=== PATIENT | female | born 1965 | race Caucasian/White ===

== ENCOUNTER 2019-02-28 01:28 | Inpatient (IN) | payer BC ==
[~2019-02-28] VITALS: Ht 162.6 cm; Wt 66.4 kg
[2019-02-28] VITALS (9 sets, daily range): BP systolic 94–129; BP diastolic 48–90
--- NOTE | 2019-02-28 01:30 | NUR ---
ED Nurse Note: pt was brought in by ambulance 61 from home for C/O flu like symptoms and nuchal rigidity. pt stated she just landed back to [place] during afternoon 02/27/19 from [place]. pt is aelrt x4. VSS
[2019-02-28] MEDS ORDERED: Metoclopramide 10mg/2ml Inj IVP ONE (01:45)
[2019-02-28] MEDS ORDERED: DiphenhydrAMINE 50mg/ml Inj IVP ONE (01:45)
[2019-02-28 01:52] LABS: BASOPHILS % (AUTO) 0.4 % (0.0-2.0); EOSINOPHILS % (AUTO) 0.5 % (0.0-3.0); HEMATOCRIT 43.1 % (37.0-47.0); HEMOGLOBIN 14.6 G/DL (12.0-16.0); LYMPHOCYTES % (AUTO) 22.2 % (20.0-45.0); MEAN CORPUSCULAR VOLUME 88 FL (80-99); MONOCYTES % (AUTO) 5.2 % (1.0-10.0); NEUTROPHILS % (AUTO) 71.7 % (45.0-75.0); PLATELET COUNT 339 K/UL (150-450); RED BLOOD COUNT 4.91 M/UL (4.20-5.40); RED CELL DISTRIBUTION WIDTH 11.4 % (11.6-14.8); WHITE BLOOD COUNT 11.4 K/UL (4.8-10.8)
--- NOTE | 2019-02-28 01:54 | NUR ---
ED Nurse Note: blood sample sent down to lab. pt unable to provide urine at this time. pt stated she will call nurse when she is ready to provide urine sample.
--- NOTE | 2019-02-28 01:59 | NUR ---
ED Nurse Note: CXR performed at bedside.
[2019-02-28 02:05] LABS: ANION GAP 11 mmol/L (5-15); BLOOD UREA NITROGEN 6 mg/dL (7-18); CALCIUM 9.5 MG/DL (8.5-10.1); CARBON DIOXIDE 27 MMOL/L (21-32); CHLORIDE 106 MMOL/L (98-107); POTASSIUM 3.5 MMOL/L (3.5-5.1); SODIUM 144 MMOL/L (136-145)
--- NOTE | 2019-02-28 02:12 | Emergency Room Report ---
History of Present Illness General Chief Complaint: General Complaint Source: Patient Present Illness HPI Patient 54-year-old female presents after increased Headache and generalized pain. She reports having onset one day prior to arrival. She had several episodes of vomiting. No diarrhea She denies prior similar headaches. She denies any prior medical history and does not have any prior history of hypertension. She reports recent travel from [place]. Reports having some increased headache as well as neck stiffness sudden onset. Also has low back pain. Some skin rash to chest which resolved several days ago. Allergies: Coded Allergies: No Known Allergies (Unverified , 02/28/19) Patient History Past Medical History: see triage record Reviewed Nursing Documentation: PMH: Agreed; PSxH: Agreed Nursing Documentation-PMH Past Medical History: No Stated History Review of Systems All Other Systems: negative except mentioned in HPI Physical Exam Vital Signs Date Time Temp Pulse Resp B/P (MAP) Pulse Ox O2 Delivery O2 Flow Rate FiO2 02/28/19 01:25 97.2 69 16 185/63 (103) 98 Room Air Sp02 EP Interpretation: reviewed, normal General Appearance: normal inspection, alert, GCS 15, moderate distress Head: atraumatic Eyes: bilateral eye PERRL, bilateral eye photophobia ENT: normal ENT inspection, hearing grossly normal, normal voice Neck: normal inspection, supple, no bony tend, limited range of motion Respiratory: normal inspection, lungs clear, normal breath sounds, no respiratory distress, no retraction, no wheezing Cardiovascular #1: regular rate, rhythm, no edema Gastrointestinal: normal inspection, normal bowel sounds, non tender, soft, no guarding, no hernia Musculoskeletal: normal inspection, back normal, normal range of motion Neurologic: normal inspection, alert, oriented x3, responsive, pattern drum maker III-XII nml as tested, speech normal Psychiatric: normal inspection, judgement/insight normal, mood/affect normal Skin: no rash Procedures Lumbar Puncture Consent: Written Location: L3-L4 Anesthesia: 1% Lidocaine Volume Anesthetic (ccs): 10 Prep: bedadine Needle Size: 3 1/2 CSF: clear Post-Procedure: recumbent position Attempts: Other - two attempted initially L4-5 without able to enter space Complications: none Patient Tolerated: Well Medical Decision Making Diagnostic Impression: Primary Impression: Meningitis ER Course Patient presented for headache. Differential diagnoses included but was not limited to skull fracture, subarachnoid hemorrhage, meningitis, aneurysm, mass lesion, intracranial hemorrhage. Because of complexity of patient's case laboratory tests and imaging studies were ordered. Patient was noted to have some concerning symptoms. She was noted to be afebrile. Laboratory testing showed slightly elevated WBC. CT head showed no acute intracranial pathology see radiology report for full details. Patient was given medications for pain and empiric antibiotics and acyclovir. Lumbar puncture was performed after informed consent. CSF studies showed elevated protein with normal glucose. Large number of WBC no organism on gram stain consistent with meningitis. Patient was given Decadron. Patient was awake and alert at the time of admission and was able to answer questions well. Dr. Lizandro Sparks was contacted for inpatient management due to panel physician. Labs Test 02/28/19 01:30 White Blood Count 11.4 K/UL (4.8-10.8) Red Blood Count 4.91 M/UL (4.20-5.40) Hemoglobin 14.6 G/DL (12.0-16.0) Hematocrit 43.1 % (37.0-47.0) Mean Corpuscular Volume 88 FL (80-99) Mean Corpuscular Hemoglobin 29.8 PG (27.0-31.0) Mean Corpuscular Hemoglobin Concent 34.0 G/DL (32.0-36.0) Red Cell Distribution Width 11.4 % (11.6-14.8) Platelet Count 339 K/UL (150-450) Mean Platelet Volume 6.8 FL (6.5-10.1) Neutrophils (%) (Auto) 71.7 % (45.0-75.0) Lymphocytes (%) (Auto) 22.2 % (20.0-45.0) Monocytes (%) (Auto) 5.2 % (1.0-10.0) Eosinophils (%) (Auto) 0.5 % (0.0-3.0) Basophils (%) (Auto) 0.4 % (0.0-2.0) Sodium Level 144 MMOL/L (136-145) Potassium Level 3.5 MMOL/L (3.5-5.1) Chloride Level 106 MMOL/L (98-107) Carbon Dioxide Level 27 MMOL/L (21-32) Anion Gap 11 mmol/L (5-15) Blood Urea Nitrogen 6 mg/dL (7-18) Creatinine 1.0 MG/DL (0.55-1.30) Estimat Glomerular Filtration Rate 57.4 mL/min (>60) Glucose Level 102 MG/DL (74-106) Calcium Level 9.5 MG/DL (8.5-10.1) EKG Diagnostic Results Rate: normal Rhythm: NSR ST Segments: no acute changes Last Vital Signs Date Time Temp Pulse Resp B/P (MAP) Pulse Ox O2 Delivery O2 Flow Rate FiO2 02/28/19 01:30 98.0 66 16 109/70 98 Room Air Status: unchanged Disposition: ADMITTED INPATIENT Condition: Stable Referrals: NOT CHOSEN IPA/,REFERRING (PCP) Wojciech Munoz MD Feb 28, 2019 02:12
--- NOTE | 2019-02-28 02:17 | NUR ---
ED Nurse Note: returned back from CT
[2019-02-28 02:18] LABS: ALANINE AMINOTRANSFERASE 22 U/L (12-78); ALBUMIN 3.8 G/DL (3.4-5.0); ALKALINE PHOSPHATASE 93 U/L (46-116); ASPARTATE AMINO TRANSFERASE 20 U/L (15-37); BILIRUBIN,TOTAL 1.2 MG/DL (0.2-1.0); CKMB < 0.5 NG/ML (0.0-3.6); CREATINE KINASE 44 U/L (26-308); PHOSPHORUS 2.2 MG/DL (2.5-4.9)
[2019-02-28 02:22] LABS: BILIRUBIN,DIRECT 0.3 MG/DL (0.0-0.3)
--- NOTE | 2019-02-28 02:35 | NUR ---
ED Nurse Note: urine sample was provided by pt and sent down to lab .
[2019-02-28 02:43] LABS: APPEARANCE,URINE CLEAR; BILIRUBIN, URINE NEGATIVE (NEGATIVE); COLOR,URINE PALE YELLOW; GLUCOSE, URINE (UA) NEGATIVE (NEGATIVE); KETONES,URINE 1+ (NEGATIVE); LEUKOCYTE ESTERASE ,URINE 1+ (NEGATIVE); NITRITE,URINE NEGATIVE (NEGATIVE); PH,URINE 8 (4.5-8.0); PROTEIN,URINE NEGATIVE (NEGATIVE); UROBILINOGEN,URINE NORMAL MG/DL (0.0-1.0)
[2019-02-28] MEDS: Morphine Sulfate 2mg/ml Inj(IV/IM USE ONLY) IVP ONE ×2 (02:59→03:02)
[2019-02-28] MEDS ORDERED: Ketorolac 30mg Inj IV ONE (03:15)
[2019-02-28] MEDS ORDERED: Lidocaine 1% Plain 30 ml INJ ONE ×2 (03:17→04:15)
--- NOTE | 2019-02-28 03:22 | NUR ---
ED Nurse Note: report given to RALPH joseph .
--- NOTE | 2019-02-28 03:40 | Diagnostic Imaging Report ---
Indications: Altered mental status Technique: Spiral acquisitions obtained through the brain. Angled axial and coronal 5 x 5 mm slices were reconstructed. Total dose length product 1426 mGycm. CTDI vol(s) 62 mGy. Dose reduction achieved using automated exposure control Comparison: None. Findings: No acute intracranial hemorrhage or edema. No mass effect nor midline shift. Normal quiñonez-white differentiation. Visualized orbits are unremarkable. There is minimal ethmoid and left sphenoid sinus disease. The frontal sinus versus are underpneumatized. The mastoids are clear. The calvarium is intact. Impression: Negative This agrees with the preliminary interpretation provided overnight by [facility] service. The CT scanner at [facility] is accredited by the [employer] and the scans are performed using protocols designed to limit radiation exposure to as low as reasonably achievable to attain images of sufficient resolution adequate for diagnostic evaluation.
--- NOTE | 2019-02-28 04:02 | NUR ---
ER Nurse Note: Lumbar puncture performed by ER MD; tolerated well. Pt expressed pain in bilateral hips and back with head pain. Tubes collected and sent to lab. Pt instructed to on back as long as possible. Will continue to josesito.
--- NOTE | 2019-02-28 04:41 | NUR ---
ER Nurse Note: Pt expressed pain on lower back and head; 10/10 intense pain. ERMD aware and prescribed pain meds. VSS, stable. Will continue to montior.
--- NOTE | 2019-02-28 05:15 | NUR ---
ED Nurse Note: received report from RALPH Kaur patient at no distress at this time. will continue to monitor
[2019-02-28] MEDS ORDERED: Vancomycin 1 GM in NS 275 ML IVPB ONE (05:30)
[2019-02-28] MEDS ORDERED: Acyclovir 500 MG in D5W 110 ML IVPB ONE (05:30)
[2019-02-28] MEDS ORDERED: cefTRIAXone 2 GM in NS 55 ML IVPB ONE (05:30)
[2019-02-28] MEDS ORDERED: Dexamethasone 4mg/ml vial IVP ONE (06:45)
--- NOTE | 2019-02-28 06:45 | NUR ---
ED Nurse Note: Patient resting in bed accompanied by daughter, in no distress. waiting for room assignment
--- NOTE | 2019-02-28 07:19 | NUR ---
HAND-OFF: Report given to RALPH Miranda.
--- NOTE | 2019-02-28 07:58 | NUR ---
ED Nurse Note: Report given to RALPH Hayward at ext [phone]. Pt to be tranferred to room [address] [facility] with contact and droplet precaution accompanied by RN and diploma pharmacy technician with all belongings.
--- NOTE | 2019-02-28 08:30 | NUR ---
NURSE NOTES: Received report from RALPH Miranda @ ER. The next of kin of the patient, the patient's daughter at the bedside to support the patient. The patient's belongings checked with the patient and two nurses and signed by two nurses. The patient came in with headache, weakness, and flu like symptoms and treated with pain medication, steroid, and antibiotics @ ER. The patient still has headache that radiates to neck and back area. Notified Dr. Sparks regarding the patient's pain and fever and received the order. Medical, Surgical, allergy, and social history taken by the nurse. Admitting EKG strip obtained. Medication reconciliation completed @ ER and the patient does not take any medication. The patient has R hand 20G SL that is intact and patent. Per patient she does not have POLST or advance directive. The patient's skin is intact. The patient is placed in contact and droplet precaution as she had abnormal finding on CSF fluid. The patient's vitals signs were as follows: BP 102/67, pulse 70, temperature 101.1F, SpO2 97% in room air. Will obtain admission order from Dr. Sparks and will continue plan of care.
[2019-02-28] MEDS ORDERED: Gadavist 7.5mMol/7.5ml vial IV PRN (08:45)
--- NOTE | 2019-02-28 09:30 | NUR ---
NURSE NOTES: Dr. Sparks ordered following admission orders: SCD for DVT prophylaxis, Full code status, Regular diet, Droplet and contact precaution, Oxygen therapy as ordered, MRI of brain with and without contrast. Dr. Sparks ordered antibiotics and consulted with Dr. Mejia for the patient's condition. Will continue plan of care.
[2019-02-28] MEDS: Acyclovir 750 MG in NS 110 ML IV SCH ×3 (09:40→22:07)
[2019-02-28] MEDS: Ampicillin 2 GM in NS 110 ML IVPB SCH ×4 (09:40→21:06)
--- NOTE | 2019-02-28 09:59 | NUR ---
*-* NO INSURANCE INFORMATION IN THE BAR UNABLE TO SEND CLINICALS OR REVIEWS *-*
--- NOTE | 2019-02-28 11:45 | Consultation ---
History of Present Illness General Date patient seen: Feb 28, 2019 Chief Complaint: General Complaint Present Illness HPI 54 y/o F with no prior medical history presented to ED on 02/28 with 1 day of worsening headache and generalized pain, several episodes of vomiting, neck stiffness and low back pain. Denied diarrhea. Recent travel from [place]; came back yesterday. Was there for 2 weeks visiting family. Last [place] Last week referred having intermittent hip pain and had a mild itchy rash on torso and abdomen. No sicks contacts. Had multiple mosquitoe bites in her home in [place], [place]. Allergies: Coded Allergies: No Known Allergies (Unverified , 02/28/19) Patient History Healthcare decision maker Resuscitation status Advanced Directive on File Patient History Narrative Pmhx: as above Shx: reviewed Fhx: non contributory Review of Systems All Other Systems: negative except mentioned in HPI Physical Exam Physical Exam Narrative General Appearance: normal inspection, well appearing, no apparent distress, alert Head: atraumatic ENT: normal ENT inspection, hearing grossly normal, normal voice Neck: normal inspection, full range of motion, supple, no bony tend Respiratory: normal inspection, lungs clear, normal breath sounds, no respiratory distress, no retraction, no wheezing Cardiovascular : regular rate, rhythm, no edema Gastrointestinal: normal inspection, normal bowel sounds, non tender, soft, no guarding, no hernia Genitourinary: no CVA tenderness Musculoskeletal: normal inspection, back normal, normal range of motion Neurologic: normal inspection, alert, oriented x3, responsive, cd manufacturing supervisor III-XII nml as tested, speech normal Psychiatric: normal inspection, judgement/insight normal, mood/affect normal Last 24 Hour Vital Signs Date Time Temp Pulse Resp B/P (MAP) Pulse Ox O2 Delivery O2 Flow Rate FiO2 02/28/19 08:04 81 20 103/74 100 Room Air 02/28/19 07:25 76 18 95/49 97 Room Air 02/28/19 06:46 75 16 102/90 98 Room Air 99 02/28/19 05:15 98.0 62 16 115/62 98 Room Air 99 02/28/19 04:40 98.0 68 16 129/68 98 Room Air 99 02/28/19 04:02 98.0 02/28/19 01:30 98.0 66 16 109/70 98 Room Air 02/28/19 01:28 74 19 Room Air 99 02/28/19 01:25 97.2 69 16 185/63 (103) 98 Room Air Intake and Output 02/27/19 02/28/19 19:00 07:00 Intake Total 1000 ml Balance 1000 ml Intake IV Total 1000 ml Laboratory Tests Test 02/28/19 01:30 02/28/19 02:30 02/28/19 04:00 White Blood Count 11.4 K/UL (4.8-10.8) H Red Blood Count 4.91 M/UL (4.20-5.40) Hemoglobin 14.6 G/DL (12.0-16.0) Hematocrit 43.1 % (37.0-47.0) Mean Corpuscular Volume 88 FL (80-99) Mean Corpuscular Hemoglobin 29.8 PG (27.0-31.0) Mean Corpuscular Hemoglobin Concent 34.0 G/DL (32.0-36.0) Red Cell Distribution Width 11.4 % (11.6-14.8) L Platelet Count 339 K/UL (150-450) Mean Platelet Volume 6.8 FL (6.5-10.1) Neutrophils (%) (Auto) 71.7 % (45.0-75.0) Lymphocytes (%) (Auto) 22.2 % (20.0-45.0) Monocytes (%) (Auto) 5.2 % (1.0-10.0) Eosinophils (%) (Auto) 0.5 % (0.0-3.0) Basophils (%) (Auto) 0.4 % (0.0-2.0) Erythrocyte Sedimentation Rate 22 MM/HR (0-30) Sodium Level 144 MMOL/L (136-145) Potassium Level 3.5 MMOL/L (3.5-5.1) Chloride Level 106 MMOL/L (98-107) Carbon Dioxide Level 27 MMOL/L (21-32) Anion Gap 11 mmol/L (5-15) Blood Urea Nitrogen 6 mg/dL (7-18) L Creatinine 1.0 MG/DL (0.55-1.30) Estimat Glomerular Filtration Rate 57.4 mL/min (>60) Glucose Level 102 MG/DL (74-106) Lactic Acid Level 1.40 mmol/L (0.4-2.0) Calcium Level 9.5 MG/DL (8.5-10.1) Phosphorus Level 2.2 MG/DL (2.5-4.9) L Magnesium Level 1.9 MG/DL (1.8-2.4) Total Bilirubin 1.2 MG/DL (0.2-1.0) H Direct Bilirubin 0.3 MG/DL (0.0-0.3) Aspartate Amino Transf (AST/SGOT) 20 U/L (15-37) Alanine Aminotransferase (ALT/SGPT) 22 U/L (12-78) Alkaline Phosphatase 93 U/L (46-116) Total Creatine Kinase 44 U/L (26-308) Creatine Kinase MB < 0.5 NG/ML (0.0-3.6) Creatine Kinase MB Relative Index 1.1 Troponin I 0.003 ng/mL (0.000-0.056) Total Protein 7.6 G/DL (6.4-8.2) Albumin 3.8 G/DL (3.4-5.0) Globulin 3.8 g/dL Albumin/Globulin Ratio 1.0 (1.0-2.7) West Nile Virus IgG Antibody Pending West Nile Virus IgM Antibody Pending HIV-1 RNA (PCR) log10 Value Pending HIV-1 RNA Ultraquantitative (PCR) Pending HIV (1&2) Antibody Rapid Negative (NEGATIVE) Urine Color Pale yellow Urine Appearance Clear Urine pH 8 (4.5-8.0) Urine Specific [place] 1.015 (1.005-1.035) Urine Protein Negative (NEGATIVE) Urine Glucose (UA) Negative (NEGATIVE) Urine Ketones 1+ (NEGATIVE) H Urine Blood Negative (NEGATIVE) Urine Nitrite Negative (NEGATIVE) Urine Bilirubin Negative (NEGATIVE) Urine Urobilinogen Normal MG/DL (0.0-1.0) Urine Leukocyte Esterase 1+ (NEGATIVE) H Urine RBC 0-2 /HPF (0 - 2) Urine WBC 0-2 /HPF (0 - 2) Urine Squamous Epithelial Cells Few /LPF (NONE/OCC) Urine Bacteria Few /HPF (NONE) Urine Opiates Screen Negative (NEGATIVE) Urine Barbiturates Screen Negative (NEGATIVE) Phencyclidine (PCP) Screen Negative (NEGATIVE) Urine Amphetamines Screen Negative (NEGATIVE) Urine Benzodiazepines Screen Negative (NEGATIVE) Urine Cocaine Screen Negative (NEGATIVE) Urine Marijuana (THC) Screen Positive (NEGATIVE) H CSF Appearance Hazy (Clear) CSF Color Colorless (Colorless) CSF WBC 4500 /CU MM (0-5) *H CSF RBC 800 /CU MM CSF Neutrophils % 11 % CSF Lymphocytes % 89 % CSF Monocytes % 0 % CSF Crenated Cells 0 % CSF Glucose 41 mg/dL (40-70) CSF Total Protein 237 MG/DL (15-45) H CSF VDRL Pending CSF Coccidioides Antibody Pending Cryptococcus Antigen Pending Microbiology Date/Time Source Procedure Growth Status 02/28/19 04:00 Cerebral Spinal Fluid Gram Stain - Final Resulted 02/28/19 04:00 Cerebral Spinal Fluid CSF Culture Pending Resulted Height (Feet): 5 Height (Inches): 4.00 Weight (Pounds): 110 Medications Current Medications Medications (Trade) Dose Ordered Sig/Dinah Route PRN Reason Start Time Stop Time Status Last Admin Dose Admin Acetaminophen (Tylenol) 650 mg Q4H PRN ORAL Mild Pain (Pain Scale 1-3) 02/28/19 08:45 03/30/19 08:44 02/28/19 09:41 Acyclovir 750 mg/ Sodium Chloride 110 ml @ 110 mls/hr Q8HR IV 02/28/19 09:00 03/30/19 08:59 02/28/19 09:40 Ampicillin 2 gm/ Sodium Chloride 110 ml @ 220 mls/hr EVERY 4 HOURS IVPB 02/28/19 09:00 03/07/19 08:59 02/28/19 09:40 Dextrose (Dextrose 50%) 25 ml Q30M PRN IV Hypoglycemia 02/28/19 08:45 03/30/19 08:44 Dextrose (Dextrose 50%) 50 ml Q30M PRN IV Hypoglycemia 02/28/19 08:45 03/30/19 08:44 Famotidine (Pepcid) 20 mg DAILY ORAL 02/28/19 09:00 03/30/19 08:59 02/28/19 09:40 Gadobutrol (Gadavist) 7.5 mmol NOW PRN IV Radiology Procedure 02/28/19 08:45 03/04/19 08:36 Ondansetron HCl (Zofran) 4 mg Q6H PRN IVP Nausea & Vomiting 02/28/19 08:45 03/30/19 08:44 Sodium Chloride 1,000 ml @ 100 mls/hr Q10H IV 02/28/19 08:45 03/30/19 08:44 02/28/19 09:39 Assessment/Plan Assessment/Plan: Abx: Acyclovir 02/28- Ampicillin 02/28- CEftriaxone x1 02/28 IV Vancomycin x1 02/28 Assessment: Meningitis- likely aseptic/viral- r/o influenza, [place], rickettsia -s/p LP: CSF wbc 4500 (N 11, L 89), glucose 41, prot 237; cx stain no organisms, few wbc; cx p -CT head: No acute intracranial pathology.No acute intracranial hemorrhage or infarct. No midline shift or mass effect. -HIV ab screen neg -Bcx p Afebrile Mild leukocytosis Plan: -Continue empiric IV Ceftriaxone, Ampicillin and Acyclovir #1 -Add empiric Tamiflu and Doxycycline pending respective testing -f/u cx -Monitor CBC/CMP, temperatures -Influenza PCR, HSV PCR CSF, RPR, rickettsia ab panel -f/u CSF cx, Cocci, Crag, WNV ab, VDRL, AFB cx , MTB PCR Thank you for this consultation. Will continue to follow along with you. Discussed with Dayna Aquino M.D. Feb 28, 2019 11:45
--- NOTE | 2019-02-28 12:00 | NUR ---
NURSE NOTES: Dr. Sparks and Dr. Boone at the bedside assessed the patient. The patient is stable without acute distress or shortness of breath. Will continue plan of care.
--- NOTE | 2019-02-28 13:21 | Diagnostic Imaging Report ---
Indication: Reason For Exam: SOB Technique: One view of the chest Comparison: none Findings: Lungs and pleural spaces are clear. Heart size is normal Impression: No acute process
--- NOTE | 2019-02-28 13:26 | NUR ---
MRI BRAIN W/WO COMPLETED.
[2019-02-28] MEDS: Doxycycline Monohydrate 100mg ORAL SCH ×2 (14:15→21:06)
--- NOTE | 2019-02-28 14:50 | NUR ---
NURSE NOTES: Sent the Influenza screening swab down to the lab. Will continue plan of care.
--- NOTE | 2019-02-28 15:30 | NUR ---
NURSE NOTES: The patient is stable without acute distress or shortness of breath. Will continue plan of care.
--- NOTE | 2019-02-28 16:21 | Diagnostic Imaging Report ---
Indication: Worsening headache and generalized pain, vomiting, neck stiffness Technique: sagittal T1 fast spin echo, axial T1 and T2 FLAIR PROPELLER, axial T2 FS PROPELLER, T2* GRE, axial diffusion weighted images, post contrast axial and coronal T1 FLAIR PROPELLER images. ADC and exponential ADC maps generated Comparison: none Findings: . No abnormal areas of restricted diffusion to suggest acute infarction. No acute hemorrhage or edema. No mass effect nor midline shift. No abnormal contrast enhancement. Normal size ventricles and extra axial CSF spaces. There is minimal left ethmoid sinus mucosal disease. The orbits are unremarkable. Impression: Negative Incidental finding of minimal sinus disease
--- NOTE | 2019-02-28 16:30 | History and Physical Report ---
DATE OF ADMISSION: 02/28/2019 REASON FOR ADMISSION: Headache. HISTORY OF PRESENT ILLNESS: The patient is a 54-year-old female who presented overnight for further evaluation and care of worsening headache and generalized pain. Also, having chills. Denies any fevers. Several episodes of vomiting. Photophobia. The patient had recently been to [place]. With her sister. Sister is currently in [place]. Headache has progressively worsened along now with sudden onset of neck stiffness. The patient is feeling ill. No prior illnesses prior to this. ALLERGIES: No known drug allergies. PAST MEDICAL HISTORY: None. FAMILY HISTORY: Noncontributory. REVIEW OF SYSTEMS: NEUROLOGIC: The patient complaining of headache and neck stiffness. CARDIOVASCULAR: No current chest pain, palpitations, angina. PULMONARY: No difficulty breathing, productive cough, sputum. GASTROINTESTINAL/GENITOURINARY: The patient having nausea and vomiting. ENDOCRINOLOGY: No night sweats, fevers, but was having chills. PSYCHIATRIC: No suicidal ideation or depression. PHYSICAL EXAMINATION: VITAL SIGNS: Blood pressure 103/74, , pulse 81, temperature 98.0, 99% oxygen saturation on room air. GENERAL: The patient is awake, in distress. HEENT: Extraocular muscles intact. No lymphadenopathy noted. CARDIOVASCULAR: S1, S2. No rubs or gallops. PULMONARY: Clear to auscultation bilaterally. No rales, rhonchi, or wheezes. ABDOMINAL: Nondistended and nontender. EXTREMITIES: No edema noted. LABORATORY AND DIAGNOSTIC DATA: Labs dated 02/28/2019, sodium 144, potassium 3.5, creatinine 1. White cell count 11.4, platelet count 339,000, hemoglobin 14.6. CSF fluid with 4500 WBC, 89% lymphocytes, 11% neutrophils. Total protein 237, glucose of 41. Serology all pending. ASSESSMENT AND PLAN: 1. Headache with neck stiffness, most likely secondary to meningitis. Infectious Disease has been consulted. Acyclovir, ampicillin, and vancomycin have been initiated. 2. DVT prophylaxis with SCDs. 3. Dehydration. We will continue IV fluid. Lizandro Sparks MD DR: LEONARDO/VERONICA JOB#: [id number] CC:
[2019-02-28] MEDS: cefTRIAXone 2 GM in D5W 55 ML IVPB SCH (17:33)
--- NOTE | 2019-02-28 17:46 | Cardiology Report ---
APPROVED REPORT EKG Measurement Heart [id number] Normal sinus rhythm Left anterior fascicular block Nonspecific ST and T wave abnormality Abnormal ECG
--- NOTE | 2019-02-28 19:00 | NUR ---
NURSE NOTES: Received pt and report from RALPH Bowen. Observed pt resting in bed with both eyes closed and family member at bedside. Pt is A/O x4. medicaid specialist is in placed, IV site intact, asymptomatic, and patent; currently running NS @ 100cc/hr. Bed is in the lowest position and locked. Call light within reach. Pt currently has an aching headache of 10/10 on pain scale. Pt asked for something stronger than Tylenol. Will contact Dr. Sparks for stronger pain meds. Will continue plan of care.
--- NOTE | 2019-02-28 19:05 | NUR ---
HAND-OFF: Report given to RALPH Paniagua. The patient is stable without acute distress or shortness of breath. The patient's bed in the lowest position, call light in reach, and fall and aspiration precaution reinforced. IV site intact and patent. Endorsed plan of care.
--- NOTE | 2019-02-28 20:03 | NUR ---
NURSE NOTES: Received orders from Dr. Sparks for Morphine 1mg IVP Q3hr PRN for pain. Will note and carry out.
[2019-02-28] MEDS ORDERED: Morphine Sulfate 2mg/ml Inj(IV/IM USE ONLY) IVP PRN (20:15)
--- NOTE | 2019-02-28 20:45 | Consultation ---
DATE OF CONSULTATION: 02/28/2019 PULMONARY CONSULTATION CONSULTING PHYSICIAN: Pritesh Culver M.D. HISTORY OF PRESENT ILLNESS: This is a 54-year-old female who presented to the hospital with headache and generalized pain. She also reports vomiting and shortness of breath. She reports cough and chest discomfort. She has recently been traveling to [place]. She also reports back pain. She was seen and worked up in the ER, found to have meningitis, admitted to the hospital for management and care. PAST MEDICAL HISTORY: Notable for no known medical illnesses. MEDICATIONS: Her list of home medications reviewed and reconciled in the chart. PHYSICAL EXAMINATION: GENERAL: Reveals a 54-year-old female. VITAL SIGNS: Blood pressure 103/70, heart rate 74, respirations 16. Afebrile. HEENT: Unremarkable. LUNGS: Clear breath sounds. ABDOMEN: Soft. EXTREMITIES: There is no edema. NEUROLOGIC: Nonfocal. LABORATORY DATA: Lab testing is notable for . Remainder of labs were unremarkable. Urine is positive for marijuana. Urinalysis is negative. Lumbar puncture was done, which showed 4500 wbc's, protein was elevated, glucose is low. IMPRESSION: 1. Meningitis. 2. Atelectasis. 3. DISCUSSION: Agree with admission and care. The patient will need broad spectrum antibiotics. I note the patient is on acyclovir and vancomycin, and also ampicillin. We will follow as social work assistant. The patient needs consultation with ID. Pritesh Culver M.D. DR: ANNELIESE JOB#: [id number] CC:
[2019-03-01] VITALS: BP 101/50
[2019-03-01] MEDS: Ampicillin 2 GM in NS 110 ML IVPB SCH ×4 (01:05→12:06)
[2019-03-01 04:00] VITALS: BP 106/58
[2019-03-01] MEDS: cefTRIAXone 2 GM in D5W 55 ML IVPB SCH ×2 (05:53→17:17)
[2019-03-01 06:20] LABS: BASOPHILS % (AUTO) 0.4 % (0.0-2.0); HEMATOCRIT 33.4 % (37.0-47.0); HEMOGLOBIN 11.2 G/DL (12.0-16.0); LYMPHOCYTES % (AUTO) 24.2 % (20.0-45.0); MEAN CORPUSCULAR VOLUME 88 FL (80-99); MONOCYTES % (AUTO) 11.9 % (1.0-10.0); NEUTROPHILS % (AUTO) 63.5 % (45.0-75.0); PLATELET COUNT 228 K/UL (150-450); RED BLOOD COUNT 3.77 M/UL (4.20-5.40); RED CELL DISTRIBUTION WIDTH 11.3 % (11.6-14.8); WHITE BLOOD COUNT 7.3 K/UL (4.8-10.8)
[2019-03-01 06:29] LABS: ANION GAP 9 mmol/L (5-15); BLOOD UREA NITROGEN 14 mg/dL (7-18); CALCIUM 8.6 MG/DL (8.5-10.1); CARBON DIOXIDE 27 MMOL/L (21-32); CHLORIDE 110 MMOL/L (98-107); CREATININE 0.9 MG/DL (0.55-1.30); POTASSIUM 3.6 MMOL/L (3.5-5.1); SODIUM 146 MMOL/L (136-145)
[2019-03-01] MEDS: Acyclovir 750 MG in NS 110 ML IV SCH ×3 (06:34→21:28)
--- NOTE | 2019-03-01 06:59 | NUR ---
NURSE NOTES: Received report from Arcelia RN. Pt alert and orientedx4 and able to make needs known. No c/o pain or SOB noted. IV site clean and asymptomatic. Bed in lowest position and locked. Sinus rhythm reported from previous shift. Observed good drop let precaution. Will continue to plan of care.
--- NOTE | 2019-03-01 07:47 | NUR ---
HAND-OFF: Report given to RALPH Pascual. Plan of care endorsed.
[2019-03-01 08:00] VITALS: BP 111/64
[2019-03-01] MEDS: Doxycycline Monohydrate 100mg ORAL SCH ×3 (08:50→21:28)
--- NOTE | 2019-03-01 09:17 | Nephrology Progress Note ---
Assessment/Plan Assessment/Plan: A/P 1) Meningitis- broad spectrum coverage. Appreciate ID assistance - awaiting isolation of offending agent 2) Dehydration - IVFs 3) DVT Prophylaxsis- SCDs Subjective Date patient seen: Mar 01, 2019 Time patient seen: 09:16 ROS Limited/Unobtainable: No Allergies: Coded Allergies: No Known Allergies (Unverified , 02/28/19) Subjective Patient still with CHAUDHARY and feeling nauseated Objective Last 24 Hour Vital Signs Date Time Temp Pulse Resp B/P (MAP) Pulse Ox O2 Delivery O2 Flow Rate FiO2 03/01/19 08:00 97.5 60 20 111/64 (80) 99 03/01/19 04:00 61 03/01/19 04:00 99.1 62 20 106/58 (74) 97 03/01/19 00:00 98.0 73 20 101/50 (67) 99 03/01/19 00:00 73 02/28/19 21:00 Room Air 02/28/19 20:00 98.6 73 19 101/48 (65) 99 02/28/19 20:00 60 02/28/19 16:00 72 02/28/19 16:00 97.7 77 18 94/52 (66) 96 02/28/19 12:00 66 02/28/19 12:00 98.8 68 18 94/52 (66) 96 02/28/19 11:08 Room Air Intake and Output 02/28/19 03/01/19 19:00 07:00 Intake Total 1410 ml Balance 1410 ml Intake Oral 300 ml IV Total 1110 ml # Voids 5 2 # Bowel Movements 1 Laboratory Tests 03/01/19 05:15: White Blood Count 7.3, Red Blood Count 3.77L, Hemoglobin 11.2L, Hematocrit 33.4L , Mean Corpuscular Volume 88, Mean Corpuscular Hemoglobin 29.7, Mean Corpuscular Hemoglobin Concent 33.6, Red Cell Distribution Width 11.3L, Platelet Count 228, Mean Platelet Volume 7.1, Neutrophils (%) (Auto) 63.5, Lymphocytes (%) (Auto) 24.2, Monocytes (%) (Auto) 11.9H, Eosinophils (%) (Auto) 0.0, Basophils (%) (Auto) 0.4, Sodium Level 146H, Potassium Level 3.6, Chloride Level 110H, Carbon Dioxide Level 27, Anion Gap 9, Blood Urea Nitrogen 14, Creatinine 0.9, Estimat Glomerular Filtration Rate > 60, Glucose Level 89, Calcium Level 8.6, Rapid Plasma Reagin [Pending] Height (Feet): 5 Height (Inches): 4.00 Weight (Pounds): 146 General Appearance: alert, mild distress EENT: normal ENT inspection Neck: normal alignment, limited range of motion Cardiovascular: normal rate, regular rhythm Respiratory/Chest: lungs clear, normal breath sounds Abdomen: non tender, soft Edema: no edema noted Arm (L), no edema noted Arm (R), no edema noted Leg (L), no edema noted Leg (R), no edema noted Pedal (L), no edema noted Pedal (R), no edema noted Generalized Lizandro Sparks MD Mar 01, 2019 09:17
--- NOTE | 2019-03-01 09:18 | NUR ---
*-* NO INSURANCE INFORMATION IN THE BAR UNABLE TO SEND CLINICALS OR REVIEWS *-*
[2019-03-01] MEDS ORDERED: Ketorolac 30mg Inj IV PRN ×2 (09:19→14:25)
[2019-03-01 12:00] VITALS: BP 115/67
--- NOTE | 2019-03-01 12:55 | Pulmonology Progress Note ---
Assessment/Plan Assessment/Plan IMPRESSION: 1. Meningitis. 2. Atelectasis. DISCUSSION: Agree with admission and care. The patient will need broad spectrum antibiotics. I note the patient is on acyclovir and vancomycin, and also ampicillin. Respiratory status is stable. Pritesh Culver M.D. Subjective Interval Events: seen by ID Constitutional: Reports: no symptoms HEENT: Repors: no symptoms Respiratory: Reports: no symptoms Cardiovascular: Reports: no symptoms Gastrointestinal/Abdominal: Reports: no symptoms Allergies: Coded Allergies: No Known Allergies (Unverified , 02/28/19) Objective Last 24 Hour Vital Signs Date Time Temp Pulse Resp B/P (MAP) Pulse Ox O2 Delivery O2 Flow Rate FiO2 03/01/19 12:00 98.0 63 22 115/67 (83) 99 03/01/19 09:00 Room Air 03/01/19 08:00 63 03/01/19 08:00 97.5 60 20 111/64 (80) 99 03/01/19 04:00 61 03/01/19 04:00 99.1 62 20 106/58 (74) 97 03/01/19 00:00 98.0 73 20 101/50 (67) 99 03/01/19 00:00 73 02/28/19 21:00 Room Air 02/28/19 20:00 98.6 73 19 101/48 (65) 99 02/28/19 20:00 60 02/28/19 16:00 72 02/28/19 16:00 97.7 77 18 94/52 (66) 96 Intake and Output 02/28/19 03/01/19 19:00 07:00 Intake Total 1410 ml Balance 1410 ml Intake Oral 300 ml IV Total 1110 ml # Voids 5 2 # Bowel Movements 1 General Appearance: no acute distress HEENT: normocephalic Respiratory/Chest: chest wall non-tender, lungs clear Cardiovascular: normal peripheral pulses Abdomen: normal bowel sounds Microbiology Date/Time Source Procedure Growth Status 02/28/19 01:30 Blood Blood Culture - Preliminary NO GROWTH AFTER 24 HOURS Resulted 02/28/19 01:15 Blood Blood Culture - Preliminary NO GROWTH AFTER 24 HOURS Resulted 02/28/19 04:00 Cerebral Spinal Fluid Gram Stain - Final Resulted 02/28/19 04:00 Cerebral Spinal Fluid CSF Culture - Preliminary NO GROWTH AFTER 24 HOURS Resulted 02/28/19 21:10 Nasopharynx - Final Complete 02/28/19 21:10 Nasopharynx - Final Complete Laboratory Tests 03/01/19 05:15: White Blood Count 7.3, Red Blood Count 3.77L, Hemoglobin 11.2L, Hematocrit 33.4L , Mean Corpuscular Volume 88, Mean Corpuscular Hemoglobin 29.7, Mean Corpuscular Hemoglobin Concent 33.6, Red Cell Distribution Width 11.3L, Platelet Count 228, Mean Platelet Volume 7.1, Neutrophils (%) (Auto) 63.5, Lymphocytes (%) (Auto) 24.2, Monocytes (%) (Auto) 11.9H, Eosinophils (%) (Auto) 0.0, Basophils (%) (Auto) 0.4, Sodium Level 146H, Potassium Level 3.6, Chloride Level 110H, Carbon Dioxide Level 27, Anion Gap 9, Blood Urea Nitrogen 14, Creatinine 0.9, Estimat Glomerular Filtration Rate > 60, Glucose Level 89, Calcium Level 8.6, Rapid Plasma Reagin [Pending] 03/01/19 10:35: Q Fever Phase I IgG Antibody [Pending], Q Fever Phase II IgG Antibody [Pending] , Rickettsia IgG Ab (Dino Mt Fever) [Pending], Rickettsia IgM Ab (Dino Mt Fever) [Pending], Typhus Fever IgG Antibody Titer [Pending], Typhus Fever IgG Antibody [Pending], Typhus Fever IgM Antibody Titer [Pending], Typhus Fever IgM Antibody [Pending] Current Medications Medications (Trade) Dose Ordered Sig/Dinah Route PRN Reason Start Time Stop Time Status Last Admin Dose Admin Acetaminophen (Tylenol) 650 mg Q4H PRN ORAL Mild Pain (Pain Scale 1-3) 02/28/19 08:45 03/30/19 08:44 03/01/19 04:12 Acyclovir 750 mg/ Sodium Chloride 110 ml @ 110 mls/hr Q8HR IV 02/28/19 09:00 03/30/19 08:59 03/01/19 06:34 Ceftriaxone Sodium 2 gm/ Dextrose 55 ml @ 110 mls/hr Q12H IVPB 02/28/19 17:30 03/07/19 17:29 03/01/19 05:53 Dextrose (Dextrose 50%) 25 ml Q30M PRN IV Hypoglycemia 02/28/19 08:45 03/30/19 08:44 Dextrose (Dextrose 50%) 50 ml Q30M PRN IV Hypoglycemia 02/28/19 08:45 03/30/19 08:44 Doxycycline Monohydrate (Doxycycline Monohydrate) 100 mg EVERY 12 HOURS ORAL 02/28/19 14:00 03/07/19 13:59 02/28/19 21:06 Famotidine (Pepcid) 20 mg DAILY ORAL 02/28/19 09:00 03/30/19 08:59 02/28/19 09:40 Gadobutrol (Gadavist) 7.5 mmol NOW PRN IV Radiology Procedure 02/28/19 08:45 03/04/19 08:36 Ketorolac Tromethamine (Toradol 30mg) 15 mg Q6H PRN IV For Pain 03/01/19 09:19 03/06/19 09:18 Ondansetron HCl (Zofran) 4 mg Q6H PRN IVP Nausea & Vomiting 02/28/19 08:45 03/30/19 08:44 03/01/19 08:50 Sodium Chloride 1,000 ml @ 100 mls/hr Q10H IV 02/28/19 08:45 03/30/19 08:44 03/01/19 04:12 Pritesh Culver MD Mar 01, 2019 12:54
--- NOTE | 2019-03-01 13:10 | NUR ---
*-* INSURANCE *-* ALL AVAILABLE CLINICALS HAVE BEEN FAXED TO: SHAYY/Greta tracking#[id number]
--- NOTE | 2019-03-01 14:20 | NUR ---
HAND-OFF: Report given to Sharonda ROSAS. Pt remains stable.
--- NOTE | 2019-03-01 15:25 | NUR ---
NURSE NOTES: Received patient into [place] [id number] bed 2 from Telemetry,patient is alert and oriented,respirations unlabored.,IV fluids infusing as ordered.Patient has hed cell phone and recovery room rn along with her personal belongings.Call light within reach.
[2019-03-01 16:00] VITALS: BP 94/51
[2019-03-01] MEDS: Metoclopramide 10mg/2ml Inj IVP PRN (16:56)
--- NOTE | 2019-03-01 18:30 | NUR ---
NURSE NOTES: patient resting,only able to take in some ice chips .IV fluids infusing as ordered.Call light within reach.
--- NOTE | 2019-03-01 19:57 | NUR ---
HAND-OFF: Aura ROSAS
--- NOTE | 2019-03-01 19:58 | NUR ---
NURSE NOTES: Received report & pt from RALPH Mcdonough. Pt lying in bed, a&ox4, in room air. No s/s of acute distress & no c/o pain at this time. IV site intact with IVF running as ordered. Droplet precaution noted. Bed in lowest position, call light within reach. Will continue to monitor.
[2019-03-01 20:00] VITALS: BP 117/66
--- NOTE | 2019-03-01 21:00 | NUR ---
NURSE NOTES: Pt refused Doxycyline stating she still feels a little bit nauseous. Explained risks & benefits.
[2019-03-02] VITALS (7 sets, daily range): BP systolic 18–121; BP diastolic 58–67
[2019-03-02] MEDS: cefTRIAXone 2 GM in D5W 55 ML IVPB SCH ×2 (05:07→18:04)
[2019-03-02] MEDS: Acyclovir 750 MG in NS 110 ML IV SCH (05:48)
--- NOTE | 2019-03-02 07:29 | NUR ---
HAND-OFF: Report given to RALPH Mcdonough. Pt in stable condition.
[2019-03-02] MEDS: Metoclopramide 10mg/2ml Inj IVP PRN (07:51)
--- NOTE | 2019-03-02 07:55 | NUR ---
NURSE NOTES: Patient is awake and alert,respirations unlabored.IV fluids infusing as ordered.patient complaining of nausea,patient requesting nausea medication.Reglan given as ordered.Call light within reach.
[2019-03-02] MEDS ORDERED: Gadavist 7.5mMol/7.5ml vial IV PRN (08:45)
[2019-03-02] MEDS: Doxycycline Monohydrate 100mg ORAL SCH (09:00)
--- NOTE | 2019-03-02 10:39 | Infectious Diseases Prog Note ---
Assessment/Plan Assessment/Plan Assessment: Meningitis- likely aseptic/viral- r/o [place], rickettsia -s/p LP: CSF wbc 4500 (N 11, L 89), glucose 41, prot 237; cx stain no organisms, few wbc; cx NTD -CT head: No acute intracranial pathology.No acute intracranial hemorrhage or infarct. No midline shift or mass effect. -HIV ab screen neg -Bcx NTD -RPR, Influenza sc, HIV ab screen neg Fever, improving Mild leukocytosis, SP Plan: -Continue empiric IV Ceftriaxone #3 pending final CSF cx -D/c empiric Acyclovir #3- doubt HSV ( there is not encephalitis ) -Cont empiric Doxycycline #2 (switch to IV) -03/01 SP Tamiflu #2, Ampicillin #2 -02/28 SP IV Vancomycin x1 -f/u cx -Monitor CBC/CMP, temperatures -f/u HSV PCR CSF, rickettsia ab panel -f/u CSF cx, Cocci, Crag, WNV ab, VDRL, AFB cx , MTB PCR Thank you for this consultation. Will continue to follow along with you. Discussed with RN Subjective Allergies: Coded Allergies: No Known Allergies (Unverified , 02/28/19) Subjective afebrile in ~48hrs leukocytosis resolved CSF cx NTD +nausea did not tolerated doxycycline Objective Vital Signs Last 24 Hour Vital Signs Date Time Temp Pulse Resp B/P (MAP) Pulse Ox O2 Delivery O2 Flow Rate FiO2 03/02/19 04:00 98.9 61 17 111/65 (80) 96 03/02/19 00:00 99.1 63 16 107/63 (78) 96 03/01/19 21:00 Room Air 03/01/19 20:00 99.3 62 17 117/66 (83) 96 03/01/19 16:00 98.0 61 18 94/51 (65) 97 03/01/19 12:00 98.0 63 22 115/67 (83) 99 Height (Feet): 5 Height (Inches): 4.00 Weight (Pounds): 146 Objective General Appearance: normal inspection, well appearing, no apparent distress, alert Head: atraumatic ENT: normal ENT inspection, hearing grossly normal, normal voice Neck: normal inspection, full range of motion, supple, no bony tend Respiratory: normal inspection, lungs clear, normal breath sounds, no respiratory distress, no retraction, no wheezing Cardiovascular : regular rate, rhythm, no edema Gastrointestinal: normal inspection, normal bowel sounds, non tender, soft, no guarding, no hernia Genitourinary: no CVA tenderness Musculoskeletal: normal inspection, back normal, normal range of motion Neurologic: normal inspection, alert, oriented x3, responsive, order administrator III-XII nml as tested, speech normal Psychiatric: normal inspection, judgement/insight normal, mood/affect normal Microbiology Date/Time Source Procedure Growth Status 02/28/19 01:30 Blood Blood Culture - Preliminary NO GROWTH AFTER 48 HOURS Resulted 02/28/19 01:15 Blood Blood Culture - Preliminary NO GROWTH AFTER 48 HOURS Resulted 02/28/19 04:00 Cerebral Spinal Fluid Gram Stain - Final Resulted 02/28/19 04:00 Cerebral Spinal Fluid CSF Culture - Preliminary NO GROWTH AFTER 24 HOURS Resulted 02/28/19 21:10 Nasopharynx - Final Complete 02/28/19 21:10 Nasopharynx - Final Complete Laboratory Tests Test 03/01/19 10:35 Q Fever Phase I IgG Antibody Pending Q Fever Phase II IgG Antibody Pending Rickettsia IgG Ab (Dino Mt Fever) Pending Rickettsia IgM Ab (Dino Mt Fever) Pending Typhus Fever IgG Antibody Titer Pending Typhus Fever IgG Antibody Pending Typhus Fever IgM Antibody Titer Pending Typhus Fever IgM Antibody Pending Current Medications Medications (Trade) Dose Ordered Sig/Dinah Route PRN Reason Start Time Stop Time Status Last Admin Dose Admin Acetaminophen (Tylenol) 650 mg Q4H PRN ORAL Mild Pain (Pain Scale 1-3) 03/01/19 14:24 03/31/19 14:23 Acyclovir 750 mg/ Sodium Chloride 110 ml @ 110 mls/hr Q8HR IV 03/01/19 22:00 03/30/19 08:59 03/02/19 05:48 Ceftriaxone Sodium 2 gm/ Dextrose 55 ml @ 110 mls/hr Q12H IVPB 03/01/19 17:30 03/07/19 17:29 03/02/19 05:07 Dextrose (Dextrose 50%) 25 ml Q30M PRN IV Hypoglycemia 03/01/19 14:24 03/31/19 14:23 Dextrose (Dextrose 50%) 50 ml Q30M PRN IV Hypoglycemia 03/01/19 14:24 03/31/19 14:23 Doxycycline Monohydrate (Doxycycline Monohydrate) 100 mg EVERY 12 HOURS ORAL 03/01/19 21:00 03/07/19 13:59 Famotidine (Pepcid) 20 mg DAILY ORAL 03/02/19 09:00 03/30/19 08:59 Gadobutrol (Gadavist) 7.5 mmol NOW PRN IV Radiology Procedure 03/02/19 08:45 03/04/19 08:36 Ketorolac Tromethamine (Toradol 30mg) 15 mg Q6H PRN IV For Pain 03/01/19 14:25 03/06/19 14:24 Prochlorperazine (Compazine) 10 mg Q6H PRN IM Nausea & Vomiting 03/02/19 08:30 04/01/19 08:29 Dayna Boone M.D. Mar 02, 2019 10:39
--- NOTE | 2019-03-02 10:43 | Pulmonology Progress Note ---
Assessment/Plan Assessment/Plan IMPRESSION: 1. Meningitis. 2. Atelectasis. DISCUSSION: Agree with admission and care. The patient will need broad spectrum antibiotics. COntinue O2 prn Respiratory status is stable. Pritesh Culver M.D. Subjective Interval Events: None new reported Constitutional: Reports: no symptoms HEENT: Repors: no symptoms Respiratory: Reports: no symptoms Cardiovascular: Reports: no symptoms Gastrointestinal/Abdominal: Reports: no symptoms Genitourinary: Reports: no symptoms Neurologic: Reports: no symptoms Allergies: Coded Allergies: No Known Allergies (Unverified , 02/28/19) Objective Last 24 Hour Vital Signs Date Time Temp Pulse Resp B/P (MAP) Pulse Ox O2 Delivery O2 Flow Rate FiO2 03/02/19 04:00 98.9 61 17 111/65 (80) 96 03/02/19 00:00 99.1 63 16 107/63 (78) 96 03/01/19 21:00 Room Air 03/01/19 20:00 99.3 62 17 117/66 (83) 96 03/01/19 16:00 98.0 61 18 94/51 (65) 97 03/01/19 12:00 98.0 63 22 115/67 (83) 99 Intake and Output 03/01/19 03/02/19 19:00 07:00 Intake Total 100 ml 1560 ml Balance 100 ml 1560 ml Intake Oral 360 ml IV Total 100 ml 1200 ml # Voids 2 General Appearance: no acute distress HEENT: normocephalic Respiratory/Chest: chest wall non-tender, lungs clear Cardiovascular: normal peripheral pulses, normal rate Abdomen: normal bowel sounds Microbiology Date/Time Source Procedure Growth Status 02/28/19 01:30 Blood Blood Culture - Preliminary NO GROWTH AFTER 48 HOURS Resulted 02/28/19 01:15 Blood Blood Culture - Preliminary NO GROWTH AFTER 48 HOURS Resulted 02/28/19 04:00 Cerebral Spinal Fluid Gram Stain - Final Resulted 02/28/19 04:00 Cerebral Spinal Fluid CSF Culture - Preliminary NO GROWTH AFTER 24 HOURS Resulted 02/28/19 21:10 Nasopharynx - Final Complete 02/28/19 21:10 Nasopharynx - Final Complete Current Medications Medications (Trade) Dose Ordered Sig/Dinah Route PRN Reason Start Time Stop Time Status Last Admin Dose Admin Acetaminophen (Tylenol) 650 mg Q4H PRN ORAL Mild Pain (Pain Scale 1-3) 03/01/19 14:24 03/31/19 14:23 Ceftriaxone Sodium 2 gm/ Dextrose 55 ml @ 110 mls/hr Q12H IVPB 03/01/19 17:30 03/07/19 17:29 03/02/19 05:07 Dextrose (Dextrose 50%) 25 ml Q30M PRN IV Hypoglycemia 03/01/19 14:24 03/31/19 14:23 Dextrose (Dextrose 50%) 50 ml Q30M PRN IV Hypoglycemia 03/01/19 14:24 03/31/19 14:23 Doxycycline Hyclate 100 mg/ Dextrose 110 ml @ 110 mls/hr Q12HR IVPB 03/02/19 10:45 03/09/19 10:44 UNV Famotidine (Pepcid) 20 mg DAILY ORAL 03/02/19 09:00 03/30/19 08:59 Gadobutrol (Gadavist) 7.5 mmol NOW PRN IV Radiology Procedure 03/02/19 08:45 03/04/19 08:36 Ketorolac Tromethamine (Toradol 30mg) 15 mg Q6H PRN IV For Pain 03/01/19 14:25 03/06/19 14:24 Prochlorperazine (Compazine) 10 mg Q6H PRN IM Nausea & Vomiting 03/02/19 08:30 04/01/19 08:29 Pritesh Culver MD Mar 02, 2019 10:43
[2019-03-02] MEDS: Doxycycline Hyclate 100 MG in D5W 110 ML IV SCH ×2 (12:49→21:32)
--- NOTE | 2019-03-02 13:20 | NUR ---
*-* INSURANCE *-* ALL AVAILABLE CLINICALS HAVE BEEN FAXED TO: SHAYY/Greta tracking#[id number]
--- NOTE | 2019-03-02 18:30 | NUR ---
NURSE NOTES: Patient resting,no complaint of nausea or headache at this time.call light within reach.
--- NOTE | 2019-03-02 19:56 | NUR ---
HAND-OFF: Report given to Ernesto ROSAS.
--- NOTE | 2019-03-02 20:00 | NUR ---
NURSE NOTES: Received Pt lying in bed. No s/s of acute distress and no c/o pain at this time. IV site intact with IVF running as ordered. Droplet precaution. Bed in lowest position, call light within reach. Will continue to provide plan of care.
[2019-03-03 04:00] VITALS: BP 111/65
[2019-03-03] MEDS: cefTRIAXone 2 GM in D5W 55 ML IVPB SCH ×2 (05:01→17:14)
--- NOTE | 2019-03-03 07:28 | Pulmonology Progress Note ---
Assessment/Plan Assessment/Plan IMPRESSION: 1. Meningitis. 2. Atelectasis. DISCUSSION: Agree with admission and care. The patient will need broad spectrum antibiotics. COntinue O2 prn Respiratory status is stable. Pritesh Culver M.D. Subjective Interval Events: None new Constitutional: Reports: no symptoms HEENT: Repors: no symptoms Respiratory: Reports: no symptoms Cardiovascular: Reports: no symptoms Gastrointestinal/Abdominal: Reports: no symptoms Genitourinary: Reports: no symptoms Allergies: Coded Allergies: No Known Allergies (Unverified , 02/28/19) Objective Last 24 Hour Vital Signs Date Time Temp Pulse Resp B/P (MAP) Pulse Ox O2 Delivery O2 Flow Rate FiO2 03/03/19 04:00 98.8 54 18 111/65 (80) 03/02/19 23:31 99.1 56 17 115/62 (79) 96 03/02/19 21:00 Room Air 03/02/19 20:00 98.9 53 18 109/58 (75) 97 03/02/19 16:00 97.7 54 18 108/59 (75) 95 03/02/19 12:00 98.3 56 18 121/67 (85) 98 03/02/19 09:00 Room Air 03/02/19 08:00 98.1 51 19 107/59 (75) 98 Intake and Output 03/02/19 03/03/19 19:00 07:00 Intake Total 480 ml 415 ml Balance 480 ml 415 ml Intake Oral 480 ml 360 ml IV Total 55 ml # Voids 3 General Appearance: no acute distress HEENT: normocephalic Respiratory/Chest: chest wall non-tender Cardiovascular: normal peripheral pulses Microbiology Date/Time Source Procedure Growth Status 02/28/19 21:10 Nasopharynx - Final Complete 02/28/19 21:10 Nasopharynx - Final Complete Laboratory Tests 03/03/19 06:37: White Blood Count [Pending], Red Blood Count [Pending], Hemoglobin [Pending], Hematocrit [Pending], Mean Corpuscular Volume [Pending], Mean Corpuscular Hemoglobin [Pending], Mean Corpuscular Hemoglobin Concent [Pending], Red Cell Distribution Width [Pending], Platelet Count [Pending], Mean Platelet Volume [ Pending], Neutrophils (%) (Auto) [Pending], Lymphocytes (%) (Auto) [Pending], Monocytes (%) (Auto) [Pending], Eosinophils (%) (Auto) [Pending], Basophils (%) (Auto) [Pending], Sodium Level [Pending], Potassium Level [Pending], Chloride Level [Pending], Carbon Dioxide Level [Pending], Blood Urea Nitrogen [Pending], Creatinine [Pending], Estimat Glomerular Filtration Rate [Pending], Glucose Level [Pending], Calcium Level [Pending] Current Medications Medications (Trade) Dose Ordered Sig/Dinah Route PRN Reason Start Time Stop Time Status Last Admin Dose Admin Acetaminophen (Tylenol) 650 mg Q4H PRN ORAL Mild Pain (Pain Scale 1-3) 03/01/19 14:24 03/31/19 14:23 Ceftriaxone Sodium 2 gm/ Dextrose 55 ml @ 110 mls/hr Q12H IVPB 03/01/19 17:30 03/07/19 17:29 03/03/19 05:01 Dextrose (Dextrose 50%) 25 ml Q30M PRN IV Hypoglycemia 03/01/19 14:24 03/31/19 14:23 Dextrose (Dextrose 50%) 50 ml Q30M PRN IV Hypoglycemia 03/01/19 14:24 03/31/19 14:23 Doxycycline Hyclate 100 mg/ Dextrose 110 ml @ 110 mls/hr Q12HR IV 03/02/19 12:00 03/09/19 11:59 03/02/19 21:32 Famotidine (Pepcid) 20 mg DAILY ORAL 03/02/19 09:00 03/30/19 08:59 Gadobutrol (Gadavist) 7.5 mmol NOW PRN IV Radiology Procedure 03/02/19 08:45 03/04/19 08:36 Ketorolac Tromethamine (Toradol 30mg) 15 mg Q6H PRN IV For Pain 03/01/19 14:25 03/06/19 14:24 Prochlorperazine (Compazine) 10 mg Q6H PRN IM Nausea & Vomiting 03/02/19 08:30 04/01/19 08:29 Pritesh Culver MD Mar 03, 2019 07:28
--- NOTE | 2019-03-03 07:37 | NUR ---
HAND-OFF: Report given to Jacqueline ROSAS.
[2019-03-03 07:40] LABS: BASOPHILS % (AUTO) 0.8 % (0.0-2.0); EOSINOPHILS % (AUTO) 1.6 % (0.0-3.0); HEMATOCRIT 35.9 % (37.0-47.0); HEMOGLOBIN 12.3 G/DL (12.0-16.0); MEAN CORPUSCULAR VOLUME 87 FL (80-99); MONOCYTES % (AUTO) 9.8 % (1.0-10.0); NEUTROPHILS % (AUTO) 46.8 % (45.0-75.0); PLATELET COUNT 264 K/UL (150-450); WHITE BLOOD COUNT 5.5 K/UL (4.8-10.8)
--- NOTE | 2019-03-03 07:40 | NUR ---
NURSE NOTES: Received report from RALPH Orozco and RALPH Escoto. Pt is A/Ox4, on RA, no complaints of pain. No apparent distress noted. IV site intact and patent. Bed locked in lowest position, side rails up, call light within reach.
[2019-03-03 08:00] VITALS: BP 128/75
[2019-03-03 08:00] LABS: ANION GAP 8 mmol/L (5-15); BLOOD UREA NITROGEN 11 mg/dL (7-18); CALCIUM 8.7 MG/DL (8.5-10.1); CARBON DIOXIDE 27 MMOL/L (21-32); CHLORIDE 106 MMOL/L (98-107); CREATININE 0.7 MG/DL (0.55-1.30); POTASSIUM 3.6 MMOL/L (3.5-5.1); SODIUM 141 MMOL/L (136-145)
[2019-03-03] MEDS: Doxycycline Hyclate 100 MG in D5W 110 ML IV SCH (08:24)
--- NOTE | 2019-03-03 11:39 | NUR ---
*-* INSURANCE *-* ALL AVAILABLE CLINICALS HAVE BEEN FAXED TO: SHAYY/Greta tracking#[id number]
[2019-03-03 12:00] VITALS: BP 108/65
--- NOTE | 2019-03-03 12:09 | Nephrology Progress Note ---
Assessment/Plan Assessment/Plan: A/P 1) Meningitis- broad spectrum coverage. Appreciate ID assistance - awaiting isolation of offending agent - [place] IgG + and igM neg 2) Dehydration - IVFs DCed 3) DVT Prophylaxsis- SCDs Subjective Date patient seen: Mar 03, 2019 Time patient seen: 12:08 ROS Limited/Unobtainable: No Allergies: Coded Allergies: No Known Allergies (Unverified , 02/28/19) Subjective Patient feeling better. CHAUDHARY and nausea improved Objective Last 24 Hour Vital Signs Date Time Temp Pulse Resp B/P (MAP) Pulse Ox O2 Delivery O2 Flow Rate FiO2 03/03/19 08:00 98.2 52 20 128/75 (92) 97 03/03/19 04:00 98.8 54 18 111/65 (80) 03/02/19 23:31 99.1 56 17 115/62 (79) 96 03/02/19 21:00 Room Air 03/02/19 20:00 98.9 53 18 109/58 (75) 97 03/02/19 16:00 97.7 54 18 108/59 (75) 95 Intake and Output 03/02/19 03/03/19 19:00 07:00 Intake Total 480 ml 525 ml Balance 480 ml 525 ml Intake Oral 480 ml 360 ml IV Total 165 ml # Voids 3 Laboratory Tests 03/03/19 06:37: White Blood Count 5.5, Red Blood Count 4.10L, Hemoglobin 12.3, Hematocrit 35.9L , Mean Corpuscular Volume 87, Mean Corpuscular Hemoglobin 30.1, Mean Corpuscular Hemoglobin Concent 34.4, Red Cell Distribution Width 11.0L, Platelet Count 264, Mean Platelet Volume 6.7, Neutrophils (%) (Auto) 46.8, Lymphocytes (%) (Auto) 41.0, Monocytes (%) (Auto) 9.8, Eosinophils (%) (Auto) 1.6, Basophils (%) (Auto) 0.8, Sodium Level 141, Potassium Level 3.6, Chloride Level 106, Carbon Dioxide Level 27, Anion Gap 8, Blood Urea Nitrogen 11, Creatinine 0.7, Estimat Glomerular Filtration Rate > 60, Glucose Level 83, Calcium Level 8.7 Height (Feet): 5 Height (Inches): 4.00 Weight (Pounds): 146 General Appearance: no apparent distress EENT: normal ENT inspection Neck: normal alignment, supple Cardiovascular: normal rate, regular rhythm Respiratory/Chest: lungs clear, normal breath sounds Abdomen: non tender, soft Edema: no edema noted Arm (L), no edema noted Arm (R), no edema noted Leg (L), no edema noted Leg (R), no edema noted Pedal (L), no edema noted Pedal (R), no edema noted Generalized Lizandro Sparks MD Mar 03, 2019 12:09
--- NOTE | 2019-03-03 15:50 | Infectious Diseases Prog Note ---
Assessment/Plan Assessment/Plan Assessment: Meningitis- likely aseptic/viral -s/p LP: CSF wbc 4500 (N 11, L 89), glucose 41, prot 237; cx stain no organisms, few wbc; cx NTD -VDRl neg -WNV IgG +, IgM neg (suggestive of prior exposure) -CT head: No acute intracranial pathology.No acute intracranial hemorrhage or infarct. No midline shift or mass effect. -HIV ab screen neg -Bcx NTD -RPR, Influenza sc, HIV ab screen and VL, R typhi ab neg -serum WNV IgG+, IgM neg Fever, improving Mild leukocytosis, SP Plan: -Continue empiric IV Ceftriaxone #4 pending final CSF cx -D/c empiric Doxycycline #3 -03/02 SP IV Acyclovir #3 -03/01 SP Tamiflu #2, Ampicillin #2 -02/28 SP IV Vancomycin x1 -f/u cx -Monitor CBC/CMP, temperatures -f/u HSV PCR CSF -f/u CSF cx, Cocci, Crag, AFB cx , MTB PCR Thank you for this consultation. Will continue to follow along with you. Discussed with RN Subjective Allergies: Coded Allergies: No Known Allergies (Unverified , 02/28/19) Subjective afebrile in >72hrs no leukocytosis CSF cx NTD Objective Vital Signs Last 24 Hour Vital Signs Date Time Temp Pulse Resp B/P (MAP) Pulse Ox O2 Delivery O2 Flow Rate FiO2 03/03/19 12:00 97.9 61 19 108/65 (79) 97 03/03/19 09:00 Room Air 03/03/19 08:00 98.2 52 20 128/75 (92) 97 03/03/19 04:00 98.8 54 18 111/65 (80) 03/02/19 23:31 99.1 56 17 115/62 (79) 96 03/02/19 21:00 Room Air 03/02/19 20:00 98.9 53 18 109/58 (75) 97 03/02/19 16:00 97.7 54 18 108/59 (75) 95 Height (Feet): 5 Height (Inches): 4.00 Weight (Pounds): 146 Objective General Appearance: normal inspection, well appearing, no apparent distress, alert Head: atraumatic ENT: normal ENT inspection, hearing grossly normal, normal voice Neck: normal inspection, full range of motion, supple, no bony tend Respiratory: normal inspection, lungs clear, normal breath sounds, no respiratory distress, no retraction, no wheezing Cardiovascular : regular rate, rhythm, no edema Gastrointestinal: normal inspection, normal bowel sounds, non tender, soft, no guarding, no hernia Genitourinary: no CVA tenderness Musculoskeletal: normal inspection, back normal, normal range of motion Neurologic: normal inspection, alert, oriented x3, responsive, e commerce architect III-XII nml as tested, speech normal Psychiatric: normal inspection, judgement/insight normal, mood/affect normal Microbiology Date/Time Source Procedure Growth Status 02/28/19 21:10 Nasopharynx - Final Complete 02/28/19 21:10 Nasopharynx - Final Complete Laboratory Tests Test 03/03/19 06:37 White Blood Count 5.5 K/UL (4.8-10.8) Red Blood Count 4.10 M/UL (4.20-5.40) L Hemoglobin 12.3 G/DL (12.0-16.0) Hematocrit 35.9 % (37.0-47.0) L Mean Corpuscular Volume 87 FL (80-99) Mean Corpuscular Hemoglobin 30.1 PG (27.0-31.0) Mean Corpuscular Hemoglobin Concent 34.4 G/DL (32.0-36.0) Red Cell Distribution Width 11.0 % (11.6-14.8) L Platelet Count 264 K/UL (150-450) Mean Platelet Volume 6.7 FL (6.5-10.1) Neutrophils (%) (Auto) 46.8 % (45.0-75.0) Lymphocytes (%) (Auto) 41.0 % (20.0-45.0) Monocytes (%) (Auto) 9.8 % (1.0-10.0) Eosinophils (%) (Auto) 1.6 % (0.0-3.0) Basophils (%) (Auto) 0.8 % (0.0-2.0) Sodium Level 141 MMOL/L (136-145) Potassium Level 3.6 MMOL/L (3.5-5.1) Chloride Level 106 MMOL/L (98-107) Carbon Dioxide Level 27 MMOL/L (21-32) Anion Gap 8 mmol/L (5-15) Blood Urea Nitrogen 11 mg/dL (7-18) Creatinine 0.7 MG/DL (0.55-1.30) Estimat Glomerular Filtration Rate > 60 mL/min (>60) Glucose Level 83 MG/DL (74-106) Calcium Level 8.7 MG/DL (8.5-10.1) Current Medications Medications (Trade) Dose Ordered Sig/Dinah Route PRN Reason Start Time Stop Time Status Last Admin Dose Admin Acetaminophen (Tylenol) 650 mg Q4H PRN ORAL Mild Pain (Pain Scale 1-3) 03/01/19 14:24 03/31/19 14:23 Ceftriaxone Sodium 2 gm/ Dextrose 55 ml @ 110 mls/hr Q12H IVPB 03/01/19 17:30 03/07/19 17:29 03/03/19 05:01 Dextrose (Dextrose 50%) 25 ml Q30M PRN IV Hypoglycemia 03/01/19 14:24 03/31/19 14:23 Dextrose (Dextrose 50%) 50 ml Q30M PRN IV Hypoglycemia 03/01/19 14:24 03/31/19 14:23 Doxycycline Hyclate 100 mg/ Dextrose 110 ml @ 110 mls/hr Q12HR IV 03/02/19 12:00 03/09/19 11:59 03/03/19 08:24 Famotidine (Pepcid) 20 mg DAILY ORAL 03/02/19 09:00 03/30/19 08:59 03/03/19 08:24 Gadobutrol (Gadavist) 7.5 mmol NOW PRN IV Radiology Procedure 03/02/19 08:45 03/04/19 08:36 Ketorolac Tromethamine (Toradol 30mg) 15 mg Q6H PRN IV For Pain 03/01/19 14:25 03/06/19 14:24 Prochlorperazine (Compazine) 10 mg Q6H PRN IM Nausea & Vomiting 03/02/19 08:30 04/01/19 08:29 Dayna Boone M.D. Mar 03, 2019 15:49
[2019-03-03 16:00] VITALS: BP 121/70
--- NOTE | 2019-03-03 19:20 | NUR ---
HAND-OFF: Report given to RALPH Escoto and RALPH Orozco.
[2019-03-03 20:00] VITALS: BP 102/63
--- NOTE | 2019-03-03 21:06 | NUR ---
NURSE NOTES: Received Pt lying in bed. No s/s of acute distress. mild headache pain at this time <3/10, no radiation and no medication intervention required. new IV site L. forearm 22G intact. pt. isolation status is standard precaution as ordered from Dr Boone. Bed in lowest position, call light within reach. Will continue to provide plan of care.
[2019-03-04] VITALS: BP 125/62
[2019-03-04 04:00] VITALS: BP 126/54
[2019-03-04] MEDS: cefTRIAXone 2 GM in D5W 55 ML IVPB SCH (04:50)
[2019-03-04 05:35] VITALS: BP 126/54
--- NOTE | 2019-03-04 07:33 | NUR ---
HAND-OFF: Report given to DELFIN Sandhu RN.
--- NOTE | 2019-03-04 07:35 | NUR ---
NURSE NOTES: Received patient in bed,asleep @ this time. Family @ bedside. Breathing is even and unlabored. Bed is in lowest position and locked. Call light within reach. Room board was updated.Will continue plan of care.
[2019-03-04 08:00] VITALS: BP 102/72
--- NOTE | 2019-03-04 09:14 | NUR ---
NURSE NOTES: Patient is awake, alert and oriented x4 talking with her . Pulse rate is 49, checked manually. Patient is asymptomatic, denies SOB, chest pain, headache,blurred vision. Dr. Sparks was informed with no new order but to monitor for now. Will continue to monitor. Instructed patient about fall risks.
--- NOTE | 2019-03-04 10:22 | Pulmonology Progress Note ---
Assessment/Plan Assessment/Plan IMPRESSION: 1. Meningitis. 2. Atelectasis. DISCUSSION: Agree with admission and care. The patient will need broad spectrum antibiotics. Continue O2 prn Respiratory status is stable. Pritesh Culver M.D. Subjective Interval Events: None new Constitutional: Reports: no symptoms HEENT: Repors: no symptoms Respiratory: Reports: no symptoms Cardiovascular: Reports: no symptoms Allergies: Coded Allergies: No Known Allergies (Unverified , 02/28/19) Objective Last 24 Hour Vital Signs Date Time Temp Pulse Resp B/P (MAP) Pulse Ox O2 Delivery O2 Flow Rate FiO2 03/04/19 09:00 Room Air 03/04/19 08:00 97.5 49 18 102/72 (82) 100 03/04/19 05:35 97.5 50 18 126/54 (78) 96 03/04/19 04:00 98.0 50 18 126/54 (78) 03/04/19 00:00 97.9 52 18 125/62 (83) 98 03/03/19 20:44 Room Air 03/03/19 20:00 97.2 50 18 102/63 (76) 97 03/03/19 16:00 98.2 56 20 121/70 (87) 97 03/03/19 12:00 97.9 61 19 108/65 (79) 97 Intake and Output 03/03/19 03/04/19 19:00 07:00 Intake Total 800 ml 1855 ml Balance 800 ml 1855 ml Intake Oral 800 ml 800 ml IV Total 1055 ml # Voids 3 3 # Bowel Movements 1 General Appearance: no acute distress HEENT: normocephalic Respiratory/Chest: chest wall non-tender Cardiovascular: normal peripheral pulses Current Medications Medications (Trade) Dose Ordered Sig/Dinah Route PRN Reason Start Time Stop Time Status Last Admin Dose Admin Acetaminophen (Tylenol) 650 mg Q4H PRN ORAL Mild Pain (Pain Scale 1-3) 03/01/19 14:24 03/31/19 14:23 Ceftriaxone Sodium 2 gm/ Dextrose 55 ml @ 110 mls/hr Q12H IVPB 03/01/19 17:30 03/07/19 17:29 03/04/19 04:50 Dextrose (Dextrose 50%) 25 ml Q30M PRN IV Hypoglycemia 03/01/19 14:24 03/31/19 14:23 Dextrose (Dextrose 50%) 50 ml Q30M PRN IV Hypoglycemia 03/01/19 14:24 03/31/19 14:23 Famotidine (Pepcid) 20 mg DAILY ORAL 03/02/19 09:00 03/30/19 08:59 03/04/19 08:54 Ketorolac Tromethamine (Toradol 30mg) 15 mg Q6H PRN IV For Pain 03/01/19 14:25 03/06/19 14:24 Prochlorperazine (Compazine) 10 mg Q6H PRN IM Nausea & Vomiting 03/02/19 08:30 04/01/19 08:29 Pritesh Culver MD Mar 04, 2019 10:22
[2019-03-04 12:00] VITALS: BP 130/65
--- NOTE | 2019-03-04 12:28 | Infectious Diseases Prog Note ---
Assessment/Plan Assessment/Plan Assessment: Meningitis- likely aseptic/viral -s/p LP: CSF wbc 4500 (N 11, L 89), glucose 41, prot 237; cx stain no organisms, few wbc; cx NTD -VDRl neg -WNV IgG +, IgM neg (suggestive of prior exposure) -CT head: No acute intracranial pathology.No acute intracranial hemorrhage or infarct. No midline shift or mass effect. -HIV ab screen neg -Bcx NTD -RPR, Influenza sc, HIV ab screen and VL, R typhi ab neg -serum WNV IgG+, IgM neg Fever, SP Mild leukocytosis, SP Plan: -Continue empiric IV Ceftriaxone #5 pending final CSF cx -if neg, will dc -03/03 SP Doxycycline #3 -03/02 SP IV Acyclovir #3 -03/01 SP Tamiflu #2, Ampicillin #2 -02/28 SP IV Vancomycin x1 -f/u cx -Monitor CBC/CMP, temperatures -f/u HSV PCR CSF -f/u CSF cx, Cocci, Crag, AFB cx , MTB PCR Thank you for this consultation. Will continue to follow along with you. Discussed with RN Subjective Allergies: Coded Allergies: No Known Allergies (Unverified , 02/28/19) Subjective afebrile no leukocytosis CSF cx NTD Objective Vital Signs Last 24 Hour Vital Signs Date Time Temp Pulse Resp B/P (MAP) Pulse Ox O2 Delivery O2 Flow Rate FiO2 03/04/19 09:00 Room Air 03/04/19 08:00 97.5 49 18 102/72 (82) 100 03/04/19 05:35 97.5 50 18 126/54 (78) 96 03/04/19 04:00 98.0 50 18 126/54 (78) 03/04/19 00:00 97.9 52 18 125/62 (83) 98 03/03/19 20:44 Room Air 03/03/19 20:00 97.2 50 18 102/63 (76) 97 03/03/19 16:00 98.2 56 20 121/70 (87) 97 Height (Feet): 5 Height (Inches): 4.00 Weight (Pounds): 146 Objective General Appearance: normal inspection, well appearing, no apparent distress, alert Head: atraumatic ENT: normal ENT inspection, hearing grossly normal, normal voice Neck: normal inspection, full range of motion, supple, no bony tend Respiratory: normal inspection, lungs clear, normal breath sounds, no respiratory distress, no retraction, no wheezing Cardiovascular : regular rate, rhythm, no edema Gastrointestinal: normal inspection, normal bowel sounds, non tender, soft, no guarding, no hernia Genitourinary: no CVA tenderness Musculoskeletal: normal inspection, back normal, normal range of motion Neurologic: normal inspection, alert, oriented x3, responsive, orthophotography technician III-XII nml as tested, speech normal Psychiatric: normal inspection, judgement/insight normal, mood/affect normal Current Medications Medications (Trade) Dose Ordered Sig/Dinah Route PRN Reason Start Time Stop Time Status Last Admin Dose Admin Acetaminophen (Tylenol) 650 mg Q4H PRN ORAL Mild Pain (Pain Scale 1-3) 03/01/19 14:24 03/31/19 14:23 Ceftriaxone Sodium 2 gm/ Dextrose 55 ml @ 110 mls/hr Q12H IVPB 03/01/19 17:30 03/07/19 17:29 03/04/19 04:50 Dextrose (Dextrose 50%) 25 ml Q30M PRN IV Hypoglycemia 03/01/19 14:24 03/31/19 14:23 Dextrose (Dextrose 50%) 50 ml Q30M PRN IV Hypoglycemia 03/01/19 14:24 03/31/19 14:23 Famotidine (Pepcid) 20 mg DAILY ORAL 03/02/19 09:00 03/30/19 08:59 03/04/19 08:54 Ketorolac Tromethamine (Toradol 30mg) 15 mg Q6H PRN IV For Pain 03/01/19 14:25 03/06/19 14:24 Prochlorperazine (Compazine) 10 mg Q6H PRN IM Nausea & Vomiting 03/02/19 08:30 04/01/19 08:29 Dayna Boone M.D. Mar 04, 2019 12:28
--- NOTE | 2019-03-04 12:44 | NUR ---
CASE MANAGEMENT: REVIEW 54Y/FEMALE PRESENTED TO ED FROM HOME CC: HEADACHE . WEAKNESS . FLU LIKE SYMPTOMS SI: MENINGITIS . ATELECTASIS T 97.2 HR 69 RR 16 BP 185/63 SAT 98% ROOM AIR WBC 11.4 IS: NS IVF BOLUS X1 BENADRYL IV X1 REGLAN IV X1 MORPHINE IV X1 VANCO IV X1 CEFTRIAXONE IV X1 PATIENT ADMITTED TO MED/SURG UNIT 03/02/2019 DCP: PATIENT IS FROM HOME
--- NOTE | 2019-03-04 15:55 | Nephrology Progress Note ---
Assessment/Plan Assessment/Plan: A/P 1) Meningitis- broad spectrum coverage. Appreciate ID assistance -all tests negative. Abx and anti-virals DCed - DC home today. No po medications required 2) Dehydration - IVFs DCed 3) DVT Prophylaxsis- SCDs Subjective Date patient seen: Mar 04, 2019 Time patient seen: 15:54 ROS Limited/Unobtainable: No Allergies: Coded Allergies: No Known Allergies (Unverified , 02/28/19) Subjective CHAUDHARY resolved. Feels at baseline Objective Last 24 Hour Vital Signs Date Time Temp Pulse Resp B/P (MAP) Pulse Ox O2 Delivery O2 Flow Rate FiO2 03/04/19 12:00 98.1 50 18 130/65 (86) 100 03/04/19 09:00 Room Air 03/04/19 08:00 97.5 49 18 102/72 (82) 100 03/04/19 05:35 97.5 50 18 126/54 (78) 96 03/04/19 04:00 98.0 50 18 126/54 (78) 03/04/19 00:00 97.9 52 18 125/62 (83) 98 03/03/19 20:44 Room Air 03/03/19 20:00 97.2 50 18 102/63 (76) 97 03/03/19 16:00 98.2 56 20 121/70 (87) 97 Intake and Output 03/03/19 03/04/19 19:00 07:00 Intake Total 800 ml 1855 ml Balance 800 ml 1855 ml Intake Oral 800 ml 800 ml IV Total 1055 ml # Voids 3 3 # Bowel Movements 1 Height (Feet): 5 Height (Inches): 4.00 Weight (Pounds): 146 Lizandro Sparks MD Mar 04, 2019 15:55
--- NOTE | 2019-03-04 15:56 | Discharge Instructions ---
Discharge Instructions Discharge Instructions Services at Discharge: day care Diet: regular Resume Normal Activity?: Yes Activity: light activity For Congestive Heart Failure Reminder Report to your physician any weight gain of 5 pounds or more in one week. Lizandro Sparks MD Mar 04, 2019 15:56
[2019-03-04] MEDS ORDERED: Tubing IV Secondary IV ONE (16:03)
[2019-03-04] MEDS ORDERED: NS 275ml ONE (16:03)
[2019-03-04] MEDS ORDERED: NAMENDA XR28 MG PO (16:38)
[2019-03-04] MEDS ORDERED: SIMVASTATIN40 MG ORAL (16:38)
[2019-03-04] MEDS ORDERED: FENOFIBRATE145 M1 ORAL (16:38)
[2019-03-04] MEDS ORDERED: REMERON15 MG ORAL (16:38)
[2019-03-04] MEDS ORDERED: ARICEPT10 MG ORAL (16:38)
[2019-03-04] MEDS ORDERED: SINGULAIR10 MG ORAL (16:38)
[2019-03-04] MEDS ORDERED: DEXILANT30 MG ORAL (16:38)
[2019-03-04] MEDS ORDERED: ZYPREXA5 MG ORAL (16:38)
[2019-03-04] MEDS ORDERED: ASPIR 8181 MG ORAL (16:38)
--- NOTE | 2019-03-04 17:10 | NUR ---
NURSE NOTES: Patient was discharged to home accompanied by her , staff escorted patient to her car. Prior to discharge, patient was seen by Dr. Sparks, per doctor, no antibiotic is needed upon discharge. Discharge instruction given to the patient to follow up with her PCP and specialist as needed, V/S stable. All belongings accounted for. Patient filled out medical records request form and RN placed it in the chart.IV and ID were removed, no s/s of infection on IV removal site.
--- NOTE | 2019-03-06 07:58 | Discharge Summary ---
Discharge Summary Discharge Summary _ DATE OF ADMISSION: 02/28/2019 DATE OF DISCHARGE: 03/04/2019 DISCHARGED BY: Dr. Sparks REASON FOR ADMISSION: 54 years old female with no significant past medical history, presented to emergency room for evaluation due to worsening headache and generalized pain. Patient denied fevers, but reported chills. Headache got progressively worse along with new sudden onset of neck stiffness. She reported several episodes of nonbloody vomiting and photophobia. Patient recently was in [place] with her sister. Sister is currently in [facility]. Upon evaluation blood pressure was elevated 185/63. Patient was afebrile initially. Laboratory work-up revealed mild leukocytosis WBC 11.4, hemoglobin 14.6, hematocrit 43.1. Platelet count 339. Stable electrolytes and renal parameters. Glucose 102. Lactic acid 1.4. EKG revealed sinus rhythm , no acute ischemic changes. CT of the head demonstrated no acute intracranial pathology. Chest x-ray showed no evidence of acute cardiopulmonary pathology. Patient subsequently undergone lumbar puncture in emergency department and subsequently admitted to for further management. CONSULTANTS: pulmonary Dr. Culver ID specialist Dr. Boone [facility] COURSE: Patient admitted, placed on isolation and started on empiric antibiotics. Patient started on the IV fluids with close monitoring of renal parameters and electrolytes. DVT prophylaxis with SCD provided. Leukocytosis resolved the next day. ESR within normal limits. MRI of the brain revealed no evidence of acute intracranial pathology. Venous duplex bilateral lower extremity revealed no evidence of acute DVT. Blood cultures were negative. Cerebrospinal fluid culture was negative. Cerebrospinal fluid analysis revealed high WBC 4500 , was hazy , with total protein 237. VDRL was nonreactive , and cocci antibody still pending. HIV test was nonreactive. Influenza screen test was negative. Q fever, typhus fever were negative . Positive IgG West Nile virus , but IgM was negative (suggestive of prior exposure). Per ID specialist meningitis was likely aseptic/viral. Leukocytosis resolved . Fever present on the first day , resolved. Supplemental oxygen was on board as needed to keep pulse oximetry above 92%. Pulmonary toilet was on board. Pulse oximetry was stable on room air. Initial blood pressure stabilized. GI prophylaxis provided. Supportive care provided. Patient clinically stabilized and was ready for discharge. Patient was discharged on oral antibiotic to complete the course at home. FINAL DIAGNOSES: Meningitis, likely aseptic/viral Dehydration Atelectasis DISCHARGE MEDICATIONS: See Medication Reconciliation list. DISCHARGE INSTRUCTIONS: Patient was discharged home. Follow up with primary care provider in one week. I have been assigned to dictate discharge summary for this account. I was not involved in the patient's management. Edith Thomas NP Mar 06, 2019 07:58
--- NOTE | 2019-03-07 10:28 | NUR ---
*-* INSURANCE *-* UPDATED CLINICALS HAVE BEEN FAXED TO: [employer] tracking#[id number] #[phone] Addendum: 03/07/19 at 1100 by ZEUS KC SPOKE TO KAREN WITH BX/BS TX AND SHE HAS CONFIRMED THAT HAVE BEEN RECEIVED.
--- NOTE | 2019-03-07 13:42 | Diagnostic Imaging Report ---
APPROVED REPORT CPT Code: 66073 Present Symptoms Shortness of breath BILATERAL: Imaging reveals a patent deep venous system bilaterally. There is no evidence of thrombus within the common femoral, superficial femoral, popliteal or tibial segments. The greater saphenous veins are within normal limits. Doppler indicates normal spontaneous flow within these segments.
== END 2019-03-04 17:05 | disposition home or self-care (01) | DRG 98 ==
LOC: EDBD 01:28 → EMR 01:43 → 2E 05:01 → EDBEDREQ 07:11 → 2E 07:49 → 4E 03-01 14:10
PROC: 009U3ZX Drainage of Spinal Canal, Percutaneous Approach, Diagnostic (ICD-10-PCS; principal; 2019-02-28)
DX: G03.0 Nonpyogenic meningitis (principal); J98.11 Atelectasis; E86.0 Dehydration; A87.9 Viral meningitis, unspecified
CPT/HCPCS: 36415; 70450; 70553; 71045; 80048; 80053; 80307; 81003; 82248; 82550; 82553; 82945; 83605; 83735; 84100; 84157; 84484; 85025; 85651; 86592; 86635; 86703; 86710; 86790; 87040; 87070; 87205; 87449; 87536; 89051; 93005; 93970; 96361; 96365; 96367; 96368; 96375; 99285; A9585; J2405; J2765; J3490; J7030